=== PATIENT | female | born 1985 | race American Indian/Alaskan Native ===

== ENCOUNTER 2016-06-12 11:54 | Emergency (ER) | payer SELFPAY ==
[2016-06-12 12:12] VITALS: BP 134/88; PULSE 70; RESP 16; TEMP 98.4; O2SAT 100; BMI 30.9
--- NOTE | 2016-06-12 12:22 | ED PDOC ---
Arrival/HPI - General Historian: Patient - General Chief Complaint: Cough, Cold, Congestion Time Seen by Provider: 06/12/16 12:15 - History of Present Illness Narrative History of Present Illness (Text): 06/12/16 12:15 31 y/o female, no significant pmh, nkda, c/o nasal congestion/stuffy nose x 1 week. Pt. stated that she has nasal congestion with sinus pressure with the stuffy nose, mild coughing, no fever or chills, no recent traveling, no palpitation, no night sweat, no dizziness, no cheest pain or shortness of breath , no other medical or psychological complaints. (Nelson Del Rosario) Past Medical History - Provider Review Nursing Documentation Reviewed: Yes - Tetanus Immunization Tetanus Immunization: Unknown - Past Medical History Past Medical History: No Previous - Cardiac Hx Cardiac Disorders: No - Pulmonary Hx Respiratory Disorders: No - Neurological Hx Neurological Disorder: No - HEENT Hx HEENT Disorder: No - Renal Hx Renal Disorder: No - Endocrine/Metabolic Hx Endocrine Disorders: No - Hematological/Oncological Hx Blood Disorders: Yes Hx Anemia: Yes - Integumentary Hx Dermatological Disorder: No - Musculoskeletal/Rheumatological Hx Musculoskeletal Disorders: No - Gastrointestinal Hx Gastrointestinal Disorders: Yes Hx Gastroesophageal Reflux: Yes - Genitourinary/Gynecological Hx Genitourinary Disorders: No - Psychiatric Hx Psychophysiologic Disorder: Yes Hx Anxiety: Yes Hx Substance Use: No - Surgical History Hx Tubal Ligation: Yes Other/Comment: laproscopy for eptopic - Anesthesia Hx Anesthesia: Yes Hx Anesthesia Reactions: No Hx Malignant Hyperthermia: No - Suicidal Assessment Feels Threatened In Home Enviroment: No Family/Social History - Physician Review Nursing Documentation Reviewed: Yes Family/Social History: Unknown Family HX Smoking Status: Never Smoked Hx Alcohol Use: No Hx Substance Use: No Allergies/Home Meds Allergies/Adverse Reactions: Allergies shellfish derived Allergy (Intermediate, Verified 06/12/16 12:12) ITCHING Review of Systems - Review of Systems Constitutional: absent: Fatigue, Fevers Eyes: absent: Vision Changes ENT: Rhinorrhea, Sinus Congestion. absent: Hearing Changes Respiratory: Cough. absent: Sputum Cardiovascular: absent: Chest Pain, Palpitations Gastrointestinal: absent: Abdominal Pain, Nausea, Vomiting Musculoskeletal: absent: Arthralgias, Back Pain, Myalgias Skin: absent: Rash, Pruritis Neurological: absent: Headache, Dizziness, Focal Weakness, Gait Changes, Facial Droop Psychiatric: absent: Anxiety, Depression, Suicidal Ideation Physical Exam Vital Signs Reviewed: Yes Temperature: Afebrile Blood Pressure: Normal Pulse: Regular Respiratory Rate: Normal Appearance: Positive for: Well-Appearing, Non-Toxic, Comfortable Pain Distress: None Mental Status: Positive for: Alert and Oriented X 3 - Systems Exam Head: Present: Atraumatic, Normocephalic, Other (+ttp on the lt. frontal sinus with no swelling. ) Pupils: Present: PERRL Extroacular Muscles: Present: EOMI Conjunctiva: Present: Normal Ears: Present: Erythema (Rt. TM erythematous and intact, lt. TM caroline color and intact, bilateral auditory canals non-erythematous, no mastoid tenderness. ), Normal Canal Mouth: Present: Moist Mucous Membranes Pharnyx: No: ERYTHEMA, EXUDATE, TONSILS ENLARGED Nose (External): Present: Atraumatic. No: Abrasion, Contusion, Laceration Nose (Internal): Present: Normal Inspection, No Active Bleeding, Rhinorrhea. No : Septal Deviation, Septal Hematoma, Epistaxis Neck: Present: Normal Range of Motion, Lymphadenopathy (+rt. anterior cervical lymphenapathy). No: Trachea Midline Respiratory/Chest: Present: Clear to Auscultation, Good Air Exchange. No: Respiratory Distress, Accessory Muscle Use, Wheezes, Decreased Breath Sounds, Rales, Retracting, Rhonchi, Tachypneic, Tender to Palpation, Other Cardiovascular: Present: Regular Rate and Rhythm, Normal S1, S2. No: Murmurs Abdomen: Present: Normal Bowel Sounds. No: Tenderness, Distention, Peritoneal Signs Back: Present: Normal Inspection Upper Extremity: Present: Normal Inspection. No: Cyanosis, Edema Lower Extremity: Present: Normal Inspection. No: Edema Neurological: Present: GCS=15, Speech Normal, Motor Func Grossly Intact, Gait Normal, Memory Normal Skin: Present: Warm, Dry, Normal Color. No: Rashes Psychiatric: Present: Alert, Oriented x 3, Normal Insight, Normal Concentration Vital Signs Temp Pulse Resp BP Pulse Ox 06/12/16 12:08 98.4 F 70 16 134/88 100 Medical Decision Making ED Course and Treatment: 06/12/16 12:24 -Discharge home with augmentin, flonase, claritin d24, promethazine dm, take tylenol at home as needed, follow up with your own pmd and ENT within 2 days, return to the ER for any new or worsening signs or symptoms. (Nelson Del Rosario) I was available for consultation during PA evaluation. The chart was reviewed by me, and I agree with disposition. The documented history was done by the physician planner chief. The documented physical exam was done by the physician planner chief. The documented procedures were done by the physician planner chief. ( Sanjay Jackson) - Medication Orders Current Medication Orders: Discontinued Medications Amoxicillin/Clavulanate Potassium (Augmentin 875 Mg-125 Mg Tab) 1 tab PO STAT STA PRN Reason: Protocol Stop: 06/12/16 12:27 Last Admin: 06/12/16 12:35 Dose: 1 TAB Ibuprofen (Motrin Tab) 600 mg PO STAT STA Stop: 06/12/16 12:27 Last Admin: 06/12/16 12:35 Dose: 600 MG MAR Pain/Vitals Document 06/12/16 12:35 RR (Rec: 06/12/16 12:36 RR [id number]) Pain Reassessment Is This A Pain ReAssessment? Yes Sleep Is patient sleeping during reassessment? No Presence of Pain Presence of Pain Yes Pain Scale Used Pain Scale Used Numeric Location Pain Location Body Site Throat Intensity 2 Scale Used Numeric - PA / FACING BASTER / Resident Statement MD/DO has reviewed & agrees with the documentation as recorded. Disposition/Present on Arrival - Present on Arrival Any Indicators Present on Arrival: No History of DVT/PE: No History of Uncontrolled Diabetes: No Urinary Catheter: No History of Decub. Ulcer: No History Surgical Site Infection Following: None - Disposition Have Diagnosis and Disposition been Completed?: Yes Disposition Time: 12:25 Patient Plan: Discharge - Disposition Diagnosis: Sinusitis, Otitis media Disposition: HOME/ ROUTINE Additional Instructions: Discharge home with augmentin, flonase, claritin d24, promethazine dm, take tylenol at home as needed, follow up with your own pmd and ENT within 2 days, return to the ER for any new or worsening signs or symptoms. Prescriptions: Amoxicillin/Clavulanate [Augmentin 875 MG-125 MG] 1 tab PO BID #20 tab Loratadine/Pseudoephedrine [Claritin-D 24 Hour Tablet] 1 each PO DAILY #7 tab.er.24h Fluticasone Nasal [Flonase] 2 spr NS DAILY #1 spr Promethazine DM [Phenergan DM Oral Syrup] 5 ml PO QID PRN #150 ml PRN Reason: Other Referrals: Ta Gracia DO [Staff Provider] - Follow up with primary [facility] [Outside] - Follow up with primary Forms: WORK NOTE
[2016-06-12] MEDS ORDERED: Amoxicillin-Clav 875-125 mg Tab PO STA (12:26)
== END 2016-06-12 12:59 | disposition home or self-care (01) ==
LOC: ED 11:54
DX: J32.9 Chronic sinusitis, unspecified (principal); H66.91 Otitis media, unspecified, right ear